=== PATIENT | female | born 1995 | race Two or more races ===

== ENCOUNTER 2017-01-04 13:37 | Emergency (ER) | payer MEDICAID ==
[~2017-01-04] VITALS: Ht 160 cm; Wt 68.0 kg
[2017-01-04] MEDS ORDERED: IBUP-1509 PO (13:47)
[2017-01-04] MEDS ORDERED: SODIUM CHLORIDE 0.9% 1,000 ML IV ONE (14:45)
[2017-01-04] MEDS ORDERED: METOCLOPRAMIDE HCL 10MG/2ML VIAL IV ONE (14:45)
[2017-01-04] MEDS ORDERED: DIPHENHYDRAMINE 50MG/ML VIAL IV ONE (14:45)
[2017-01-04] MEDS ORDERED: KETOROLAC 30MG/ML VIAL IV ONE (14:45)
[2017-01-04 15:30] LABS: CLARITY URINE CLOUDY (CLEAR); COLOR URINE YELLOW (YELLOW); GLUCOSE URINE NEGATIVE (NEGATIVE); KETONES URINE NEGATIVE (NEGATIVE); LEUKOCYTE ESTERASE URINE 2+ (NEGATIVE); NITRITE URINE POSITIVE (NEGATIVE); OCCULT BLOOD URINE NEGATIVE (NEGATIVE); PH URINE 7.5 (4.5-8.0); PROTEIN URINE NEGATIVE (NEGATIVE); UROBILINOGEN URINE 0.2 E.U./dL (0.2-1.0)
[2017-01-04 15:57] VITALS: BP 137/56
== END 2017-01-04 15:59 | disposition home or self-care (01) ==
LOC: ER 15:03
DX: G43.909 Migraine, unspecified, not intractable, without status migrainosus (principal); H53.149 Visual discomfort, unspecified; F12.90 Cannabis use, unspecified, uncomplicated
CPT/HCPCS: 81001; 81025; 96361; 96374; 96375; 99284; J1200; J1885; J2765; J7030; Z7610

== ENCOUNTER 2017-04-28 07:20 | Emergency (ER) | payer MEDICAID ==
[~2017-04-28] VITALS: Ht 165.1 cm; Wt 79.0 kg
[~2017-04-28 07:20] MED LIST: IBUP-2028 PO
[2017-04-28 10:11] VITALS: BP 120/78
== END 2017-04-28 10:23 | disposition home or self-care (01) ==
LOC: ER 07:41
DX: S20.151A Superficial foreign body of breast, right breast, initial encounter (principal); F12.10 Cannabis abuse, uncomplicated; X58.XXXA Exposure to other specified factors, initial encounter; Y93.89 Activity, other specified; Y92.89 Other specified places as the place of occurrence of the external cause; Y99.8 Other external cause status
CPT/HCPCS: 99284; Z7610

== ENCOUNTER 2017-12-07 11:55 | Emergency (ER) | payer MEDICAID ==
[~2017-12-07] VITALS: Ht 165.1 cm; Wt 77.0 kg
[2017-12-07 18:01] VITALS: BP 126/71
== END 2017-12-07 18:02 | disposition home or self-care (01) ==
LOC: ER 11:55
DX: R05 Cough (principal); L02.415 Cutaneous abscess of right lower limb; R07.89 Other chest pain; R06.02 Shortness of breath; F12.10 Cannabis abuse, uncomplicated
CPT/HCPCS: 71045; 99283

== ENCOUNTER 2018-05-13 13:14 | Emergency (ER) | payer MEDICAID ==
[~2018-05-13] VITALS: Ht 175.3 cm; Wt 59.0 kg
[2018-05-13] MEDS ORDERED: IBUPROFEN 600MG TABLET PO ONE (13:45)
[2018-05-13 14:44] VITALS: BP 112/68
== END 2018-05-13 14:44 | disposition home or self-care (01) ==
LOC: ER 13:15
DX: S50.02XA Contusion of left elbow, initial encounter (principal); F12.10 Cannabis abuse, uncomplicated; W01.0XXA Fall on same level from slipping, tripping and stumbling without subsequent striking against object, initial encounter; Y93.89 Activity, other specified; Y92.89 Other specified places as the place of occurrence of the external cause; Y99.8 Other external cause status
CPT/HCPCS: 73080; 99284; A4565

== ENCOUNTER 2020-09-21 09:20 | Emergency (ER) | payer MEDICAID, OTHER ==
[~2020-09-21] VITALS: Ht 162.6 cm; Wt 81.0 kg
[2020-09-21] MEDS ORDERED: KETOROLAC 30MG/ML VIAL IV STA (09:46)
[2020-09-21] MEDS ORDERED: ONDANSETRON HCL 4MG/2ML INJ IV STA (09:46)
[2020-09-21 10:16] LABS: BASOPHILS % 0.5 % (0.0-2.0); EOSINOPHILS % 0.6 % (0.0-5.0); HEMATOCRIT. 42.8 % (36.0-48.0); HEMOGLOBIN. 14.1 g/dL (12.0-16.0); LYMPHOCYTES % 20.1 % (20.0-50.0); MEAN CORPUSCULAR HEMOGLOBIN 30.5 pg (28.0-32.0); MEAN CORPUSCULAR VOLUME 92.2 fL (81.0-99.0); MEAN PLATELET VOLUME 10.5 fl (7.4-10.4); MONOCYTES % 5.4 % (2.0-8.0); NEUTROPHILS % 73.4 % (40.0-76.0); PLATELET 159 x1000/uL (130-400); RED BLOOD CELL COUNT 4.64 mill/uL (4.2-5.4); RED CELL DISTRIBUTION WIDTH 14.7 % (11.6-14.6)
[2020-09-21 10:23] LABS: CHLORIDE 110 mEq/L (98-107)
[2020-09-21 10:26] LABS: PROTHROMBIN TIME 10.8 sec (9.6-11.0)
[2020-09-21] MEDS ORDERED: MORPHINE SULFATE 4 MG/ML CPJ (NOT FOR IM USE) IV ONE (11:30)
[2020-09-21 13:34] LABS: HCG SCREEN NEGATIVE
[2020-09-21 13:43] LABS: CLARITY URINE CLOUDY (CLEAR); COLOR URINE ORANGE (YELLOW); KETONES URINE 3+ (NEGATIVE); LEUKOCYTE ESTERASE URINE TRACE (NEGATIVE); NITRITE URINE NEGATIVE (NEGATIVE); OCCULT BLOOD URINE 3+ (NEGATIVE); PH URINE 5.5 (4.5-8.0); PROTEIN URINE 2+ (NEGATIVE); SPECIFIC GRAVITY URINE 1.032 (1.005-1.030)
[2020-09-21] MEDS ORDERED: IBUP-2029 MT (14:28)
[2020-09-21] MEDS ORDERED: HYDR-4346 MT (14:28)
[2020-09-21] MEDS ORDERED: TAMS-11 MT (14:32)
[2020-09-21] MEDS ORDERED: T3 PO ×2 (14:39→14:40)
[2020-09-21 15:14] VITALS: BP 104/60
== END 2020-09-21 15:16 | disposition home or self-care (01) ==
LOC: ER 09:36
DX: N20.0 Calculus of kidney (principal); R03.0 Elevated blood-pressure reading, without diagnosis of hypertension
CPT/HCPCS: 36415; 74176; 80053; 81003; 81025; 83690; 84703; 85025; 85610; 93005; 96374; 96375; 99285; J1885; J2270; J2405; Z7610

== ENCOUNTER 2020-12-16 08:11 | Emergency (ER) | payer OTHER ==
[~2020-12-16] VITALS: Ht 165.1 cm; Wt 81.0 kg
[~2020-12-16 08:11] MED LIST changes: +HYDR-4346 MT; +IBUP-2029 MT; +T3 PO; +TAMS-11 MT
[2020-12-16] MEDS ORDERED: ONDANSETRON HCL 4MG/2ML INJ IV STA (08:44)
[2020-12-16] MEDS ORDERED: KETOROLAC 30MG/ML VIAL IV STA (08:44)
[2020-12-16 08:55] LABS: CLARITY URINE CLEAR (CLEAR); COLOR URINE YELLOW (YELLOW); KETONES URINE TRACE (NEGATIVE); LEUKOCYTE ESTERASE URINE TRACE (NEGATIVE); NITRITE URINE NEGATIVE (NEGATIVE); OCCULT BLOOD URINE NEGATIVE (NEGATIVE); PH URINE 5.5 (4.5-8.0); PROTEIN URINE NEGATIVE (NEGATIVE); SPECIFIC GRAVITY URINE 1.024 (1.005-1.030); UROBILINOGEN URINE 0.2 E.U./dL (0.2-1.0)
[2020-12-16 10:39] LABS: BASOPHILS % 0.5 % (0.0-2.0); EOSINOPHILS % 0.6 % (0.0-5.0); HEMATOCRIT. 39.4 % (36.0-48.0); HEMOGLOBIN. 13.7 g/dL (12.0-16.0); LYMPHOCYTES % 22.9 % (20.0-50.0); MEAN CORPUSCULAR HEMOGLOBIN 32.1 pg (28.0-32.0); MEAN CORPUSCULAR VOLUME 92.1 fL (81.0-99.0); MEAN PLATELET VOLUME 9.7 fl (7.4-10.4); MONOCYTES % 10.4 % (2.0-8.0); NEUTROPHILS % 65.6 % (40.0-76.0); PLATELET 145 x1000/uL (130-400); RED BLOOD CELL COUNT 4.28 mill/uL (4.2-5.4); RED CELL DISTRIBUTION WIDTH 14.5 % (11.6-14.6)
[2020-12-16 10:49] LABS: CHLORIDE 113 mEq/L (98-107)
[2020-12-16] MEDS ORDERED: NITR100C PO (12:04)
[2020-12-16] MEDS ORDERED: ACET-2708 PO (12:04)
[2020-12-16 12:31] VITALS: BP 139/76
== END 2020-12-16 12:34 | disposition home or self-care (01) ==
LOC: ER 08:11
DX: R10.12 Left upper quadrant pain (principal); F12.10 Cannabis abuse, uncomplicated; Z87.442 Personal history of urinary calculi
CPT/HCPCS: 36415; 76770; 80053; 81003; 81025; 83690; 85025; 96374; 96375; 99284; J1885; J2405; Z7610

== ENCOUNTER 2021-05-16 13:08 | Inpatient (IN) | payer MEDICAID, OTHER ==
[~2021-05-16] VITALS: Ht 162.6 cm; Wt 63.7 kg
[~2021-05-16 13:08] MED LIST changes: +ACET-2708 PO; +NITR100C PO
[2021-05-16] MEDS ORDERED: SODIUM CHLORIDE 0.9% 1,000 ML IV ONE (13:30)
[2021-05-16 14:43] LABS: BASOPHILS % 0.5 % (0.0-2.0); EOSINOPHILS % 0.1 % (0.0-5.0); HEMATOCRIT. 29.3 % (36.0-48.0); HEMOGLOBIN. 9.9 g/dL (12.0-16.0); LYMPHOCYTES % 15.8 % (20.0-50.0); MEAN CORPUSCULAR HEMOGLOBIN 31.2 pg (28.0-32.0); MEAN CORPUSCULAR VOLUME 92.4 fL (81.0-99.0); MEAN PLATELET VOLUME 10.4 fl (7.4-10.4); MONOCYTES % 5.7 % (2.0-8.0); NEUTROPHILS % 77.9 % (40.0-76.0); PLATELET 158 x1000/uL (130-400); RED BLOOD CELL COUNT 3.17 mill/uL (4.2-5.4); RED CELL DISTRIBUTION WIDTH 13.9 % (11.6-14.6)
[2021-05-16 14:50] LABS: CHLORIDE 108 mEq/L (98-107)
[2021-05-16 14:59] LABS: B-HCG QUANTITATIVE 236 mIU/mL (<3)
[2021-05-16 16:41] LABS: CLARITY URINE CLEAR (CLEAR); COLOR URINE DARK YELLOW (YELLOW); KETONES URINE 3+ (NEGATIVE); LEUKOCYTE ESTERASE URINE NEGATIVE (NEGATIVE); NITRITE URINE NEGATIVE (NEGATIVE); OCCULT BLOOD URINE NEGATIVE (NEGATIVE); PH URINE 5.5 (4.5-8.0); PROTEIN URINE 1+ (NEGATIVE); SPECIFIC GRAVITY URINE 1.038 (1.005-1.030)
[2021-05-16] MEDS ORDERED: MORPHINE SULFATE 4 MG/ML CPJ (NOT FOR IM USE) IV ONE (18:30)
[2021-05-16] MEDS ORDERED: MORPHINE SULFATE 2 MG/ML CPJ (NOT FOR IM USE) IV NR (18:36)
[2021-05-16] MEDS ORDERED: LACTATED RINGERS 1,000 ML IV SCH ×2 (19:00)
[2021-05-16] MEDS ORDERED: LIDOCAINE HCL 1% 10 MG/ML 10ML VIAL ONE (19:58)
[2021-05-16] MEDS ORDERED: PROPOFOL 200MG/20ML VIAL IV ONE (19:58)
[2021-05-16] MEDS ORDERED: SUCCINYLCHOLINE CHLORIDE 200MG/10ML IV ONE (19:58)
[2021-05-16] MEDS ORDERED: MIDAZOLAM HCL 2 MG/2 ML VIAL ONE (19:58)
[2021-05-16] MEDS ORDERED: ROCURONIUM BROMIDE 10MG/ML VIAL 5ML IV ONE (19:58)
[2021-05-16] MEDS ORDERED: FENTANYL CITRATE/PF 50MCG/ML 2ML VIAL ONE (19:58)
[2021-05-16] MEDS ORDERED: PHENYLEPHRINE HCL 10 MG/ML 1ML (IV VIAL) IV ONE (19:59)
[2021-05-16] MEDS ORDERED: CEFTRIAXONE 1 G PREMIX 50 ML IV ONE (20:00)
[2021-05-16] MEDS ORDERED: DEXAMETHASONE 4MG/ML 1ML VIAL ONE (20:28)
[2021-05-16] MEDS ORDERED: ONDANSETRON HCL 4MG/2ML INJ ONE (20:28)
[2021-05-16] MEDS ORDERED: HYDROMORPHONE HCL/PF 2MG/ML CPJ IV PRN (20:30)
[2021-05-16] MEDS ORDERED: ONDANSETRON HCL 4MG/2ML INJ IV PRN ×2 (20:30→22:30)
[2021-05-16 20:54] LABS: INR 1.1; PARTIAL THROMBOPLASTIN TIME 24.3 sec (23.4-31.0); PROTHROMBIN TIME 11.4 sec (9.6-11.0)
[2021-05-16 20:58] LABS: HEPATITIS B SURFACE ANTIGEN NEGATIVE
[2021-05-16] MEDS ORDERED: CEFAZOLIN SODIUM 1000MG/VIAL ONE (21:20)
[2021-05-16] MEDS ORDERED: KETOROLAC 30MG/ML VIAL ONE (21:33)
[2021-05-16] MEDS ORDERED: GLYCOPYRROLATE 0.2 MG/ML 2ML VIAL ONE (21:48)
[2021-05-16] MEDS ORDERED: NEOSTIGMINE METHYLSULFATE 1MG/ML 10 ML VIAL ONE (21:48)
[2021-05-16] MEDS ORDERED: SKIN ADHESIVE 0.7 GM EA TOP ONE (21:59)
[2021-05-16] MEDS ORDERED: MORPHINE SULFATE 4 MG/ML CPJ (NOT FOR IM USE) IV PRN (22:30)
[2021-05-16] MEDS ORDERED: CEFAZOLIN 1000MG PREMIX 50 ML IV SCH (22:30)
[2021-05-16] MEDS ORDERED: ACETAMINOPHEN 650MG SUPP PR PRN (22:30)
[2021-05-16 23:30] VITALS: BP 111/52
[2021-05-17] VITALS: BP 105/60
[2021-05-17] MEDS ORDERED: CEFTRIAXONE 1,000 MG in DEXTROSE 5% WATER 50 ML IV NR (00:45)
[2021-05-17] MEDS ORDERED: NALOXONE HCL 0.4MG/ML VIAL IV PRN (01:00)
[2021-05-17] MEDS: DEXT 5%/0.45% NACL KCL 20MEQ/L 1,000 ML IV SCH ×4 (01:16→21:30)
[2021-05-17 04:00] VITALS: BP 99/55
[2021-05-17] MEDS: CEFAZOLIN 1000MG PREMIX 50 ML IV SCH ×3 (05:54→21:14)
[2021-05-17 07:57] LABS: HEMATOCRIT. 21.8 % (36.0-48.0); HEMOGLOBIN. 7.4 g/dL (12.0-16.0); MEAN CORPUSCULAR HEMOGLOBIN 31.1 pg (28.0-32.0); MEAN CORPUSCULAR VOLUME 91.9 fL (81.0-99.0); PLATELET 115 x1000/uL (130-400); RED BLOOD CELL COUNT 2.37 mill/uL (4.2-5.4); RED CELL DISTRIBUTION WIDTH 14.1 % (11.6-14.6)
[2021-05-17 08:00] VITALS: BP 107/59
[2021-05-17 08:07] LABS: *AMPHETAMINES SCREEN URINE NEGATIVE (NEGATIVE)
[2021-05-17 08:08] LABS: *BARBITURATES SCREEN URINE NEGATIVE (NEGATIVE); *BENZODIAZEPINES SCREEN URINE NEGATIVE (NEGATIVE); *COCAINE SCREEN URINE NEGATIVE (NEGATIVE); METHADONE URINE SCREEN NEGATIVE (NEGATIVE); OPIATES URINE SCREEN NEGATIVE (NEGATIVE); PHENCYCLIDINE URINE SCREEN NEGATIVE (NEGATIVE)
[2021-05-17 08:11] LABS: CANNABINOID URINE SCREEN PRESUMTIVE POSITIVE (NEGATIVE)
[2021-05-17 11:11] LABS: PLATELET ESTIMATE DECREASED
[2021-05-17 12:00] VITALS: BP 107/63
[2021-05-17] MEDS ORDERED: MORPHINE SULFATE 2 MG/ML CPJ (NOT FOR IM USE) IV PRN (14:16)
[2021-05-17] MEDS ORDERED: RHO(D) IMMUNE GLOBULIN 300 MCG/SYR IM ONE (14:30)
[2021-05-17 16:00] VITALS: BP 101/58
[2021-05-17 20:00] VITALS: BP 108/46
[2021-05-17] MEDS: ACETAMINOPHEN WITH CODEINE 300/30MG TABLET PO PRN (21:14)
[2021-05-18] VITALS: BP 98/54
[2021-05-18 04:00] VITALS: BP 98/56
[2021-05-18] MEDS: DEXT 5%/0.45% NACL KCL 20MEQ/L 1,000 ML IV SCH ×2 (06:42→17:17)
[2021-05-18 08:00] VITALS: BP 124/76
[2021-05-18 12:00] VITALS: BP 118/72
[2021-05-18 12:47] LABS: BASOPHILS % 0.2 % (0.0-2.0); EOSINOPHILS % 0.2 % (0.0-5.0); LYMPHOCYTES % 17.6 % (20.0-50.0); MEAN CORPUSCULAR HEMOGLOBIN 31.8 pg (28.0-32.0); MEAN CORPUSCULAR VOLUME 92.2 fL (81.0-99.0); MEAN PLATELET VOLUME 9.6 fl (7.4-10.4); MONOCYTES % 7.7 % (2.0-8.0); NEUTROPHILS % 74.3 % (40.0-76.0); PLATELET 127 x1000/uL (130-400); RED BLOOD CELL COUNT 2.16 mill/uL (4.2-5.4); RED CELL DISTRIBUTION WIDTH 13.9 % (11.6-14.6)
[2021-05-18 13:02] LABS: HEMATOCRIT. 19.9 % (36.0-48.0); HEMOGLOBIN. 6.9 g/dL (12.0-16.0)
[2021-05-18 16:00] VITALS: BP 114/66
[2021-05-18 20:00] VITALS: BP 102/54
[2021-05-19] VITALS: BP 110/49
[2021-05-19] MEDS: DEXT 5%/0.45% NACL KCL 20MEQ/L 1,000 ML IV SCH ×2 (03:41→13:30)
[2021-05-19 04:00] VITALS: BP 97/49
[2021-05-19] MEDS ORDERED: FERROUS SULFATE 325MG TABLET PO SCH (07:40)
[2021-05-19 08:00] VITALS: BP 106/52
[2021-05-19 12:00] VITALS: BP 104/56
[2021-05-19] MEDS ORDERED: DOCUSATE SODIUM 100MG CAPSULE PO PRN (15:44)
[2021-05-19 16:00] VITALS: BP 109/60
[2021-05-19] MEDS ORDERED: IRON SUCROSE COMPLEX 100 MG/5 ML ML IV SCH (16:00)
[2021-05-19 20:00] VITALS: BP 106/58
[2021-05-19] MEDS: ACETAMINOPHEN WITH CODEINE 300/30MG TABLET PO PRN (20:21)
[2021-05-20] VITALS: BP 100/61
[2021-05-20 04:00] VITALS: BP 96/51
[2021-05-20 08:00] VITALS: BP 104/54
[2021-05-20] MEDS: DEXT 5%/0.45% NACL KCL 20MEQ/L 1,000 ML IV SCH (09:30)
[2021-05-20 10:33] VITALS: BP 104/54
[2021-05-20 12:00] VITALS: BP 102/52
== END 2021-05-20 13:57 | disposition home or self-care (01) | DRG 547 ==
LOC: ER 13:08 → 8WST 17:02 → CANRESERV 20:15 → ENRESERV 20:15
PROVIDERS: ADMIT Obstetrics & Gynecology; ATTEND Obstetrics & Gynecology
PROC: 10D20ZZ Extraction of Products of Conception, Ectopic, Open Approach (ICD-10-PCS; principal; 2021-05-16)
PROC: 0U950ZZ Drainage of Right Fallopian Tube, Open Approach (ICD-10-PCS; 2021-05-16)
PROC: 3E0234Z Introduction of Serum, Toxoid and Vaccine into Muscle, Percutaneous Approach (ICD-10-PCS; 2021-05-17)
DX: O34.81 Maternal care for other abnormalities of pelvic organs, first trimester (principal); O00.101 Right tubal pregnancy without intrauterine pregnancy; O99.011 Anemia complicating pregnancy, first trimester; Z20.822 Contact with and (suspected) exposure to COVID-19; N83.201 Unspecified ovarian cyst, right side; D64.9 Anemia, unspecified; Z79.891 Long term (current) use of opiate analgesic; Z87.442 Personal history of urinary calculi; Z91.81 History of falling; Z79.1 Long term (current) use of non-steroidal anti-inflammatories (NSAID); Z79.899 Other long term (current) drug therapy; Z23 Encounter for immunization; Z3A.01 Less than 8 weeks gestation of pregnancy
CPT/HCPCS: 36415; 76830; 76856; 80053; 80305; 81003; 84702; 85025; 86592; 86703; 86762; 86850; 86886; 86900; 87340; 87426; 90384; 93005; 99291; J0330; J0690; J0696; J1100; J1885; J2250; J2270; J2370; J2405; J2704; J2710; J3010; J3490; J7030; J7060; J7120

== ENCOUNTER 2021-10-22 13:48 | Emergency (ER) | payer MEDICAID, OTHER ==
[~2021-10-22] VITALS: Ht 162.6 cm; Wt 68.0 kg
[2021-10-22 14:17] VITALS: BP 115/68
[2021-10-22 17:17] LABS: CLARITY URINE CLEAR (CLEAR); COLOR URINE YELLOW (YELLOW); KETONES URINE NEGATIVE (NEGATIVE); LEUKOCYTE ESTERASE URINE 1+ (NEGATIVE); NITRITE URINE NEGATIVE (NEGATIVE); OCCULT BLOOD URINE NEGATIVE (NEGATIVE); PROTEIN URINE NEGATIVE (NEGATIVE); SPECIFIC GRAVITY URINE 1.015 (1.005-1.030); UROBILINOGEN URINE 0.2 E.U./dL (0.2-1.0)
== END 2021-10-22 21:03 | disposition left against medical advice (07) ==
LOC: ER 13:48
DX: R10.9 Unspecified abdominal pain (principal); Z53.21 Procedure and treatment not carried out due to patient leaving prior to being seen by health care provider
CPT/HCPCS: 76770; 76801; 81003

== ENCOUNTER 2022-05-19 14:23 | Emergency (ER) | payer OTHER ==
[~2022-05-19] VITALS: Ht 165.1 cm; Wt 78.0 kg
[2022-05-19 14:37] VITALS: BP 124/76
[2022-05-19] MEDS ORDERED: ACETAMINOPHEN 325MG TABLET PO PRN (16:15)
[2022-05-19 16:28] LABS: BASOPHILS % 0.4 % (0.0-2.0); EOSINOPHILS % 0.8 % (0.0-5.0); HEMATOCRIT. 40.6 % (36.0-48.0); LYMPHOCYTES % 29.2 % (20.0-50.0); MEAN PLATELET VOLUME 9.3 fl (7.4-10.4); MONOCYTES % 5.2 % (2.0-8.0); NEUTROPHILS % 64.4 % (40.0-76.0); PLATELET 171 x1000/uL (130-400); RED BLOOD CELL COUNT 4.51 mill/uL (4.2-5.4); RED CELL DISTRIBUTION WIDTH 14.9 % (11.6-14.6)
[2022-05-19] MEDS ORDERED: ONDANSETRON HCL 4MG TABLET PO ONE (16:30)
[2022-05-19 16:34] LABS: CHLORIDE 108 mEq/L (98-107)
[2022-05-19 16:43] LABS: B-HCG QUANTITATIVE < 1 mIU/mL (<3)
== END 2022-05-19 19:15 | disposition home or self-care (01) ==
LOC: ER 14:23
DX: N93.8 Other specified abnormal uterine and vaginal bleeding (principal); Z98.890 Other specified postprocedural states
CPT/HCPCS: 36415; 76830; 76856; 80053; 81025; 84702; 85025; 86850; 86900; 86901; 99284; Q0162

== ENCOUNTER 2023-05-08 05:24 | Emergency (ER) | payer MEDICAID, OTHER ==
[~2023-05-08] VITALS: Ht 162.6 cm; Wt 83.0 kg
[2023-05-08 06:00] LABS: CLARITY URINE CLOUDY (CLEAR); COLOR URINE YELLOW (YELLOW); GLUCOSE URINE NEGATIVE (NEGATIVE); KETONES URINE NEGATIVE (NEGATIVE); LEUKOCYTE ESTERASE URINE 1+ (NEGATIVE); NITRITE URINE NEGATIVE (NEGATIVE); OCCULT BLOOD URINE 3+ (NEGATIVE); PROTEIN URINE NEGATIVE (NEGATIVE); SPECIFIC GRAVITY URINE 1.027 (1.005-1.030)
[2023-05-08 06:01] VITALS: BP 102/60; PULSE 89; RESP 18; TEMP 98.3; O2SAT 100
[2023-05-08 06:32] LABS: BASOPHILS % 0.4 % (0.0-2.0); EOSINOPHILS % 1.6 % (0.0-5.0); HEMATOCRIT. 40.8 % (36.0-48.0); LYMPHOCYTES % 20.4 % (20.0-50.0); MEAN CORPUSCULAR HEMOGLOBIN 31.1 pg (28.0-32.0); MEAN CORPUSCULAR HGB CONC 34.2 g/dL (31.0-37.0); MEAN CORPUSCULAR VOLUME 90.8 fL (81.0-99.0); MEAN PLATELET VOLUME 9.7 fl (7.4-10.4); MONOCYTES % 4.8 % (2.0-8.0); NEUTROPHILS % 72.8 % (40.0-76.0); PLATELET 178 x1000/uL (130-400); RED BLOOD CELL COUNT 4.49 mill/uL (4.2-5.4); WHITE BLOOD COUNT 10.4 x1000/uL (4.5-11.0)
[2023-05-08 06:36] LABS: CHLORIDE 110 mEq/L (98-107); INDEX HEMOLYSI 1 (1-3); INDEX ICTERIC 1 (1-4); INDEX LIPEMIC 1 (1-3); POTASSIUM 3.9 mEq/L (3.5-5.1); SODIUM 139 mEq/L (136-145)
[2023-05-08 07:01] LABS: ALANINE AMINOTRANSFERASE 13 IU/L (13-61); ALBUMIN 3.6 g/dL (3.4-5.0); ASPARTATE AMINOTRANSFERASE 10 IU/L (15-37); B-HCG QUANTITATIVE 25111 mIU/mL (<3); BILIRUBIN TOTAL 0.6 mg/dL (0.1-1.0); CALCIUM 8.6 mg/dL (8.5-10.1); CARBON DIOXIDE 26 mEq/L (21-32); CREATININE 0.9 mg/dL (0.6-1.3); GLUCOSE 106 mg/dL (70-105); PROTEIN TOTAL 7.2 g/dL (6.0-8.3); UREA NITROGEN BLOOD 12 mg/dL (7-21)
[2023-05-08 07:27] LABS: SQUAMOUS EPITHELIAL CELL URINE 1+ /lpf (RARE/1+)
[2023-05-08 07:29] LABS: WBC URINE 0-2 /hpf (0-2)
[2023-05-08 07:31] LABS: BACTERIA URINE 2+
[2023-05-08] MEDS ORDERED: RHO(D) IMMUNE GLOBULIN 300 MCG/SYR IM ONE (08:15)
[2023-05-08] MEDS ORDERED: NITR-87 MT (10:11)
== END 2023-05-08 12:13 | disposition home or self-care (01) ==
LOC: ER 05:24
DX: O20.0 Threatened abortion (principal); Z3A.01 Less than 8 weeks gestation of pregnancy; Z98.890 Other specified postprocedural states; Z79.899 Other long term (current) drug therapy
CPT/HCPCS: 36415; 76801; 80053; 81003; 81025; 84702; 85025; 86850; 86900; 90384; 99284

== ENCOUNTER 2023-05-09 18:46 | Emergency (ER) | payer OTHER ==
[~2023-05-09] VITALS: Ht 167.6 cm; Wt 75.0 kg
[~2023-05-09 18:46] MED LIST changes: +NITR-87 MT
[2023-05-09 18:49] VITALS: PULSE 95
[2023-05-09 18:54] VITALS: BP 115/67; RESP 18; TEMP 98.1; O2SAT 100
[2023-05-09] MEDS ORDERED: RHO(D) IMMUNE GLOBULIN 300 MCG/SYR IM ONE (19:30)
== END 2023-05-09 20:11 | disposition home or self-care (01) ==
LOC: ER 18:46
DX: Z04.89 Encounter for examination and observation for other specified reasons (principal); Z53.21 Procedure and treatment not carried out due to patient leaving prior to being seen by health care provider
CPT/HCPCS: 36415; 86850; 86900; 90384; 99281